=== PATIENT | male | born 1955 | race Caucasian/White ===

== ENCOUNTER 2017-09-13 03:10 | Emergency (ER) | payer SELFPAY ==
[2017-09-13 04:34] LABS: ALT (SGPT) 17 U/L (8-55); AST (SGOT) 23 U/L (5-34); Albumin 3.7 g/dL (3.4-4.8); Alkaline Phosphatase 73 U/L (40-150); Anion Gap 11 mmol/L (10-20); BUN (Urea Nitrogen) 15 mg/dL (8.4-25.7); Bilirubin, Total 0.2 mg/dL (0.2-1.2); Calc. Creatinine Clearance 0 mL/min (70-130); Calcium 8.7 mg/dL (7.8-10.44); Carbon Dioxide 23 mmol/L (23-31); Chloride 111 mmol/L (98-107); Estimated GFR-MDRD 90; Globulin 2.3 g/dL (2.4-3.5); Glucose 131 mg/dL (80-115); Potassium 3.7 mmol/L (3.5-5.1); Sodium 141 mmol/L (136-145)
[2017-09-13 04:37] LABS: CKMB 4.2 ng/mL (0-6.6); Troponin I Less than 0.010 ng/mL (< 0.028)
[2017-09-13 05:15] LABS: #Basophils 0.1 thou/uL (0.0-0.2); #Eosinphils 0.3 thou/uL (0.0-0.7); #Lymphocytes 2.6 thou/uL (1.20-3.40); #Monocytes 1.1 thou/uL (0.11-0.59); %Basophils 0.6 % (0.0-1.0); %Eosinophils 3.2 % (0.0-10.0); %Lymphocytes 28.9 % (21.0-51.0); %Monocytes 12.1 % (0.0-10.0); %Neutrophils 55.2 % (42.0-75.0); Hemoglobin 13.2 g/dL (14.0-18.0); Mean Corpuscular HGB CONC 33.5 g/dL (32.0-36.0); Mean Corpuscular Hemoglobin 32.3 pg (27.0-31.0); Mean Corpuscular Volume 96.4 fl (80.0-94.0); Mean Platelet Volume 7.5 fL (7.4-10.4); Platelet Count 259 thou/uL (130-400); RBC Distribution Width 11.6 % (11.5-14.5); Red Blood Cell (RBC) Count 4.07 mill/uL (4.70-6.10); White Blood Cell (WBC) Count 9.1 thou/uL (4.8-10.8)
[2017-09-13 05:24] LABS: Acetaminophen Less than 6.0 mcg/mL (10.0-30.0); Alcohol Less than 10 mg/dL (Less than 10); Salicylate Less than 8.0 mg/dL (15.0-30.0)
[2017-09-13 05:34] LABS: Amphetamine Not Detected (NotDetected); Barbiturates Screen Not Detected (NotDetected); Benzodiazepine Screen Not Detected (NotDetected); Cocaine Metabolite Screen Not Detected (NotDetected); Medtox Control Line Valid? VALID (VALID); Medtox Reader # READER 1; Methadone Not Detected (NotDetected); Methamphetamine Not Detected (NotDetected); Opiate Screen Not Detected (NotDetected); Oxycodone Screen Not Detected (NotDetected); Phencyclidine (PCP) Not Detected (NotDetected); THC/Cannabinoid Screen Detected (NotDetected); Tricyclic Screen Not Detected (NotDetected)
[2017-09-13] MEDS ORDERED: Ibuprofen 800 MG TAB ONE (05:53)
--- NOTE | 2017-09-13 08:22 | RAD ---
AP VIEW OF THE CHEST: INDICATION: Chest pain with dizziness. IMPRESSION: ACDF is unchanged from a compression of 01/28/14. There is mild cardiomegaly. Lungs are clear. No p leural effusion or pneumothorax is evident. IMPRESSION: Mild cardiomegaly without evidence of cardiac decompensation. POS: [facility]
--- NOTE | 2017-09-15 17:50 | EKG ---
Test Reason : Blood Pressure : / mmHG Vent. Rate : 107 BPM Atrial Rate : 107 BPM P-R Int : 156 ms QRS Dur : 086 ms QT Int : 358 ms P-R-T Axes : 057 032 046 degrees QTc Int : 477 ms Sinus tachycardia Otherwise normal ECG Confirmed by NANY MOSER D.O. ([id number]), video news editor PADMA KANG ([id number]) on 09/15/2017 5:48:24 PM Referred By: Confirmed By:NANY MOSER D.O.
== END 2017-09-13 06:17 | disposition home or self-care (01) ==
LOC: ERS 03:10
DX: F43.9 Reaction to severe stress, unspecified (principal); J45.909 Unspecified asthma, uncomplicated
CPT/HCPCS: 36415; 71045; 80053; 80306; 80307; 82140; 82553; 84484; 85025; 93005

== ENCOUNTER 2017-09-14 13:00 | Emergency (ER) | payer SELFPAY ==
[2017-09-14 13:28] LABS: #Basophils 0.1 thou/uL (0.0-0.2); #Eosinphils 0.2 thou/uL (0.0-0.7); #Lymphocytes 2.7 thou/uL (1.20-3.40); #Neutrophils 5.3 thou/uL (1.40-6.50); %Eosinophils 2.2 % (0.0-10.0); %Lymphocytes 29.4 % (21.0-51.0); %Monocytes 10.3 % (0.0-10.0); %Neutrophils 57.1 % (42.0-75.0); Hemoglobin 14.2 g/dL (14.0-18.0); Mean Corpuscular HGB CONC 33.4 g/dL (32.0-36.0); Mean Corpuscular Volume 95.8 fl (80.0-94.0); Mean Platelet Volume 6.8 fL (7.4-10.4); Platelet Count 292 thou/uL (130-400); RBC Distribution Width 11.5 % (11.5-14.5); Red Blood Cell (RBC) Count 4.43 mill/uL (4.70-6.10); White Blood Cell (WBC) Count 9.2 thou/uL (4.8-10.8)
[2017-09-14 13:50] LABS: ALT (SGPT) 17 U/L (8-55); AST (SGOT) 19 U/L (5-34); Albumin 4.1 g/dL (3.4-4.8); Alkaline Phosphatase 81 U/L (40-150); Anion Gap 14 mmol/L (10-20); BUN (Urea Nitrogen) 10 mg/dL (8.4-25.7); Bilirubin, Total 0.8 mg/dL (0.2-1.2); Calc. Creatinine Clearance 0 mL/min (70-130); Calcium 9.1 mg/dL (7.8-10.44); Carbon Dioxide 23 mmol/L (23-31); Chloride 107 mmol/L (98-107); Estimated GFR-MDRD Greater than 90; Globulin 2.5 g/dL (2.4-3.5); Glucose 142 mg/dL (80-115); Potassium 3.7 mmol/L (3.5-5.1); Protein, Total 6.6 g/dL (5.8-8.1); Sodium 140 mmol/L (136-145)
[2017-09-14 14:48] LABS: CKMB 3.8 ng/mL (0-6.6); Troponin I 0.011 ng/mL (< 0.028)
[2017-09-14 14:59] LABS: Bilirubin Negative (Negative); Blood, Urine Negative (Negative); Clarity CLEAR (Clear); Glucose, Urine (Dipstick) Negative (Negative); Leukocyte Negative (Negative); Nitrite Negative (Negative); Protein, Urine (Dipstick) Negative (Neg-Trace); Specific Gravity, Urine 1.015 (1.002-1.036); Urobilinogen 0.2 mg/dL (0.2-1.0); pH, Urine 5.5 (5.0-9.0)
[2017-09-14 15:11] LABS: Medtox Reader # READER 1
[2017-09-14 15:12] LABS: Amphetamine Not Detected (NotDetected); Barbiturates Screen Not Detected (NotDetected); Benzodiazepine Screen Not Detected (NotDetected); Cocaine Metabolite Screen Not Detected (NotDetected); Medtox Control Line Valid? VALID (VALID); Methadone Not Detected (NotDetected); Methamphetamine Not Detected (NotDetected); Opiate Screen Not Detected (NotDetected); Oxycodone Screen Not Detected (NotDetected); Phencyclidine (PCP) Not Detected (NotDetected); THC/Cannabinoid Screen Not Detected (NotDetected); Tricyclic Screen Not Detected (NotDetected)
--- NOTE | 2017-09-14 15:41 | CT ---
CT BRAIN WITHOUT CONTRAST: HISTORY: Altered mental status. COMPARISON: There are no comparisons. FINDINGS: No acute territorial infarct or hemorrhage. No midline shift or mass effect. Old lacunar infarct on the left. Mild microvascular ischemic changes. No midline shift or mass effect. There is evidence of old sinu s surgery. The mastoids are clear. Calvarium is intact. The orbits are unremarkable. IMPRESSION: Chronic changes. No acute intracranial abnormality. POS: [facility]
== END 2017-09-14 18:26 | disposition left against medical advice (07) ==
LOC: ERS 13:00
DX: R41.82 Altered mental status, unspecified (principal); J45.909 Unspecified asthma, uncomplicated
CPT/HCPCS: 70450; 80053; 80306; 81003; 82553; 84443; 84484; 85025; 93005; 96360

== ENCOUNTER 2018-04-16 22:59 | Emergency (ER) | payer SELFPAY ==
[2018-04-17 00:44] LABS: #Basophils 0.1 thou/uL (0.0-0.2); #Eosinphils 0.1 thou/uL (0.0-0.7); #Lymphocytes 2.2 thou/uL (1.20-3.40); #Monocytes 0.9 thou/uL (0.11-0.59); #Neutrophils 6.6 thou/uL (1.40-6.50); %Basophils 0.6 % (0.0-1.0); %Eosinophils 1.1 % (0.0-10.0); %Lymphocytes 22.4 % (21.0-51.0); %Monocytes 9.4 % (0.0-10.0); %Neutrophils 66.5 % (42.0-75.0); Hemoglobin 14.4 g/dL (14.0-18.0); Mean Corpuscular HGB CONC 34.2 g/dL (32.0-36.0); Mean Corpuscular Hemoglobin 31.8 pg (27.0-31.0); Mean Corpuscular Volume 93.2 fL (78.0-98.0); Mean Platelet Volume 6.9 fL (7.4-10.4); Platelet Count 257 thou/uL (130-400); RBC Distribution Width 12.1 % (11.5-14.5); Red Blood Cell (RBC) Count 4.51 mill/uL (4.70-6.10); White Blood Cell (WBC) Count 9.9 thou/uL (4.8-10.8)
[2018-04-17 00:54] LABS: Amphetamine Not Detected (NotDetected); Barbiturates Screen Not Detected (NotDetected); Benzodiazepine Screen Not Detected (NotDetected); Cocaine Metabolite Screen Not Detected (NotDetected); Medtox Control Line Valid? VALID (VALID); Medtox Reader # READER 4; Methadone Not Detected (NotDetected); Methamphetamine Not Detected (NotDetected); Opiate Screen Not Detected (NotDetected); Oxycodone Screen Not Detected (NotDetected); Phencyclidine (PCP) Not Detected (NotDetected); THC/Cannabinoid Screen Not Detected (NotDetected); Tricyclic Screen Not Detected (NotDetected)
[2018-04-17 01:04] LABS: ALT (SGPT) 14 U/L (8-55); AST (SGOT) 20 U/L (5-34); Acetaminophen Less than 6.0 mcg/mL (10.0-30.0); Albumin 4.1 g/dL (3.4-4.8); Alcohol Less than 10 mg/dL (Less than 10); Alkaline Phosphatase 80 U/L (40-150); Anion Gap 14 mmol/L (10-20); BUN (Urea Nitrogen) 10 mg/dL (8.4-25.7); Bilirubin, Total 0.6 mg/dL (0.2-1.2); CK (CPK) 214 U/L (30-200); Calc. Creatinine Clearance 0 mL/min (70-130); Carbon Dioxide 24 mmol/L (23-31); Chloride 105 mmol/L (98-107); Estimated GFR-MDRD 72; Globulin 2.5 g/dL (2.4-3.5); Glucose 114 mg/dL (80-115); Potassium 3.7 mmol/L (3.5-5.1); Protein, Total 6.6 g/dL (5.8-8.1); Salicylate Less than 8.0 mg/dL (15.0-30.0); Sodium 139 mmol/L (136-145)
[2018-04-17] MEDS ORDERED: Acetaminophen 500 MG TAB ONE (03:27)
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
--- NOTE | 2018-04-18 13:47 | EKG ---
Test Reason : MANIC Blood Pressure : / mmHG Vent. Rate : 074 BPM Atrial Rate : 074 BPM P-R Int : 154 ms QRS Dur : 088 ms QT Int : 400 ms P-R-T Axes : 069 033 034 degrees QTc Int : 444 ms Normal sinus rhythm Normal ECG Confirmed by NANY MOSER D.O. ([id number]), purchasing expeditor PADMA KANG ([id number]) on 04/18/2018 1:47:26 PM Referred By: Confirmed By:NANY MOSER D.O.
== END 2018-04-17 03:30 | disposition home or self-care (01) ==
LOC: ERS 22:59
DX: R51 Headache (principal); J45.909 Unspecified asthma, uncomplicated; M19.90 Unspecified osteoarthritis, unspecified site
CPT/HCPCS: 36415; 70450; 80053; 80306; 80307; 82550; 85025; 93005

== ENCOUNTER 2023-06-01 10:14 | Day surgery (SDC) | payer OTHER, MEDICAID ==
[2023-05-31 11:35] VITALS: BMI 28.5
[2023-06-01] MEDS ORDERED: fentaNYL 50 mcg/mL 1 mL Vial ONE (11:58)
[2023-06-01] MEDS ORDERED: PROPOFOL 200 MG/20 ML VIAL ONE (12:07)
== END 2023-06-01 13:23 | disposition home or self-care (01) ==
LOC: SDC 10:14
PROVIDERS: ATTEND Internal Medicine Gastroenterology
PROC: 0DD78ZX Extraction of Stomach, Pylorus, Via Natural or Artificial Opening Endoscopic, Diagnostic (ICD-10-PCS; principal; 2023-06-01)
DX: K58.9 Irritable bowel syndrome, unspecified (principal); K21.00 Gastro-esophageal reflux disease with esophagitis, without bleeding; K31.89 Other diseases of stomach and duodenum; K29.80 Duodenitis without bleeding; K29.50 Unspecified chronic gastritis without bleeding; G40.909 Epilepsy, unspecified, not intractable, without status epilepticus; M19.90 Unspecified osteoarthritis, unspecified site; Z79.899 Other long term (current) drug therapy
CPT/HCPCS: 43239; J3010; 88305; J2704

== ENCOUNTER 2024-02-07 16:42 | Outpatient (CLI) | payer OTHER | END 2024-02-07 16:43 | disposition home or self-care (01) | LOC: SCSRAD 16:42 | PROVIDERS: ATTEND Nurse Practitioner Family | DX: Z47.1 Aftercare following joint replacement surgery (principal); Z96.641 Presence of right artificial hip joint ==

== ENCOUNTER 2024-04-24 08:18 | Observation (INO) | payer OTHER ==
[2024-04-17 11:39] VITALS: BMI 29.0
[2024-04-24] MEDS ORDERED: Tranexamic Acid 1,000 MG/10 ML VIAL ONE (08:52)
[2024-04-24] MEDS ORDERED: Sodium Chloride 0.9% 100 ML ONE ×2 (08:52→09:28)
[2024-04-24] MEDS ORDERED: Vancomycin (BATCH) 1.5 GM/300 ML BAG ONE (08:52)
[2024-04-24] MEDS ORDERED: fentaNYL 50 mcg/mL 1 mL Vial ONE (09:19)
[2024-04-24] MEDS ORDERED: Midazolam HCl 2 mg/2 ml Vial ONE ×2 (09:19→09:58)
[2024-04-24] MEDS ORDERED: Ropivacaine 0.5% HCl/PF (150 MG/30 ML VIAL) ONE (09:19)
[2024-04-24] MEDS ORDERED: CEFAZOLIN 2 GM VIAL ONE (09:28)
[2024-04-24] MEDS ORDERED: Rocuronium Bromide 10 MG/ML (10ML VIAL) ONE (09:57)
[2024-04-24] MEDS ORDERED: fentaNYL PF 100 MCG/2 ML SYRINGE ONE (09:57)
[2024-04-24] MEDS ORDERED: PROPOFOL 20 ML ONE (09:57)
[2024-04-24] MEDS ORDERED: Ondansetron PF 4 MG/2 ML Vial ONE (09:59)
[2024-04-24] MEDS ORDERED: Dexamethasone 20 MG/5 ML VIAL ONE (09:59)
[2024-04-24] MEDS ORDERED: fentaNYL 50 mcg/mL 1 mL Vial SLOW IVP PRN (10:10)
[2024-04-24] MEDS ORDERED: Promethazine HCl 25 MG/ML VIAL IM PRN (10:15)
[2024-04-24] MEDS ORDERED: Zolpidem Tartrate 5 MG TAB PO PRN ×2 (10:15→12:19)
[2024-04-24] MEDS ORDERED: HYDROcodone/Acetaminophen 10/325 mg Tablet PO PRN ×2 (10:15→12:19)
[2024-04-24] MEDS ORDERED: Ropivacaine 0.2% 550 ML 550 ML NERVE BLCK SCH (10:15)
[2024-04-24] MEDS ORDERED: Ondansetron PF 4 MG/2 ML Vial IVP PRN ×2 (10:15→12:19)
[2024-04-24] MEDS ORDERED: Lidocaine 1% PF 5 ML VIAL ONE (10:23)
[2024-04-24] MEDS ORDERED: Glycopyrrolate 0.2 MG/ML 5 ML SYRINGE ONE (10:59)
[2024-04-24] MEDS ORDERED: NEOSTIGMINE 3 MG/3 ML SYRINGE ONE (10:59)
[2024-04-24] MEDS ORDERED: diphenhydrAMINE 50 MG CAP PO PRN (12:19)
[2024-04-24] MEDS ORDERED: Bisacodyl 10 MG SUPP PR PRN (12:19)
[2024-04-24] MEDS ORDERED: Ondansetron ODT 4 MG TAB PO PRN (12:19)
[2024-04-24] MEDS ORDERED: traMADol HCl 50 MG TAB PO PRN ×2 (12:19)
[2024-04-24] MEDS ORDERED: Methocarbamol 500 MG TAB PO PRN (12:19)
[2024-04-24] MEDS ORDERED: Ketorolac Tromethamine 30 MG (1 mL) VIAL IVP SCH (12:19)
[2024-04-24] MEDS ORDERED: Milk Of Magnesia 30 ML UDCUP PO PRN (12:19)
[2024-04-24] MEDS ORDERED: Acetaminophen 325 MG TAB PO PRN (12:19)
[2024-04-24] MEDS ORDERED: Ketorolac Tromethamine 30 MG (1 mL) VIAL ONE (12:52)
[2024-04-24] MEDS: Ketorolac Tromethamine 30 MG (1 mL) VIAL IVP SCH (15:15)
[2024-04-24] MEDS: Lactated Ringer's 1,000 ML IV SCH (15:15)
[2024-04-24] MEDS: CEFAZOLIN 2 GM in Sodium Chloride 0.9% 100 ML IVPB SCH (17:20)
[2024-04-24] MEDS: Mometasone 100 MCG/Formoterol 5 MCG 120 PUFF INHALER INH PRN (19:06)
[2024-04-24] MEDS: Baclofen 10 MG TAB PO SCH (19:39)
[2024-04-24] MEDS: Gabapentin 400 MG CAP PO SCH (19:40)
[2024-04-24] MEDS: HYDROcodone/Acetaminophen 10/325 mg Tablet PO PRN (19:41)
[2024-04-24] MEDS: Famotidine 20 MG TAB PO SCH (19:42)
[2024-04-24] MEDS ORDERED: Aspirin/APAP/Caffeine Tab (Excedrin Migraine) PO PRN (21:00)
[2024-04-25] MEDS: HYDROcodone/Acetaminophen 10/325 mg Tablet PO PRN (03:00)
[2024-04-25 07:39] VITALS: TEMP 98.2
[2024-04-25] MEDS: Tamsulosin HCl 0.4 MG CAP PO SCH (08:56)
[2024-04-25 11:35] VITALS: BP 130/86
== END 2024-04-25 14:59 | disposition home or self-care (01) ==
LOC: SDC 08:18 → SURG A 14:29
PROVIDERS: ADMIT Orthopaedic Surgery; ATTEND Orthopaedic Surgery
PROC: 0RRJ00Z Replacement of Right Shoulder Joint with Reverse Ball and Socket Synthetic Substitute, Open Approach (ICD-10-PCS; principal; 2024-04-24)
PROC: 0LS30ZZ Reposition Right Upper Arm Tendon, Open Approach (ICD-10-PCS; 2024-04-24)
PROC: 3E0R3BZ Introduction of Anesthetic Agent into Spinal Canal, Percutaneous Approach (ICD-10-PCS; 2024-04-24)
DX: M19.011 Primary osteoarthritis, right shoulder (principal); M75.21 Bicipital tendinitis, right shoulder; M19.012 Primary osteoarthritis, left shoulder; J45.909 Unspecified asthma, uncomplicated; K58.9 Irritable bowel syndrome, unspecified; G43.909 Migraine, unspecified, not intractable, without status migrainosus; Z90.89 Acquired absence of other organs; Z90.49 Acquired absence of other specified parts of digestive tract; Z98.890 Other specified postprocedural states; Z96.641 Presence of right artificial hip joint; Z88.8 Allergy status to other drugs, medicaments and biological substances; Z91.041 Radiographic dye allergy status; Z79.899 Other long term (current) drug therapy
CPT/HCPCS: 23430; 23472; 64415; 94640; 97110; 97116 ×2; 97535; A4306; C1713; C1776; J1100; J1885 ×2; J2250; J2405; J2704; J2795 ×2; J3010; J3370

== ENCOUNTER 2024-08-06 10:03 | Outpatient (CLI) | payer OTHER | END 2024-08-06 10:04 | disposition home or self-care (01) | LOC: SCSRAD 10:03 | DX: M25.511 Pain in right shoulder (principal); M19.011 Primary osteoarthritis, right shoulder; Z98.1 Arthrodesis status ==